=== PATIENT | male | born 1955 | race Caucasian/White ===

== ENCOUNTER 2021-08-01 20:34 | Emergency (ER) | payer BC ==
[2021-08-01 20:51] VITALS: BP 188/93; PULSE 68; RESP 18; TEMP 97.8
[2021-08-01] MEDS ORDERED: ACETAMINOPHEN TAB 500 MG TAB PO STA (22:05)
[2021-08-01] MEDS ORDERED: LIDOCAINE 1% INJ 10MG/ML (20 ML MDV) SQ ONE (22:05)
[2021-08-01] MEDS ORDERED: DIPH,PERTUS(ACELL)TETVAC-LF 0.5 ML VIAL IM ONE (22:05)
[2021-08-01] MEDS ORDERED: BACITRACIN OINT 1 EACH PACKET TOPICAL ONE (22:05)
--- NOTE | 2021-08-01 23:19 | ED ---
Wound/Laceration HPI - General Chief Complaint: Wound/Laceration Stated Complaint: Fall,Head Lac Time Seen by Provider: 08/01/21 21:52 Source: patient, RN notes reviewed Mode of arrival: ambulatory Limitations: no limitations - History of Present Illness Initial Comments: Patient is a 66-year-old male with history of Parkinson's, presenting to emergency Department with an injury to his left forehead. Patient states he was trying to get firewood, he tripped on the ground and fell forward, his forehead struck a tree stump. He denies loss of consciousness, he denies being dizzy or lightheaded. He is not on blood thinners. He has a large laceration to the left side of his forehead. He is not up-to-date with his tetanus vaccine. He denies any neck pain, no chest pain or shortness of breath, no pain in his extremities. He has no further injuries from this fall. He has no further complaints. - Related Data Allergies Allergy/AdvReac Type Severity Reaction Status Date / Time No Known Allergies Allergy Verified 08/01/21 20:50 Review of Systems ROS Statement: Those systems with pertinent positive or pertinent negative responses have been documented in the HPI. ROS Other: All systems not noted in ROS Statement are negative. Past Medical History Additional Past Medical History / Comment(s): Parkinsons History of Any Multi-Drug Resistant Organisms: None Reported Past Surgical History: No Surgical Hx Reported Past Psychological History: No Psychological Hx Reported Smoking Status: Never smoker Past Alcohol Use History: Occasional Past Drug Use History: None Reported General Exam - General Exam Comments Initial Comments: GENERAL: Patient is well-developed and well-nourished. Patient is nontoxic and in no acute distress. HEAD: Atraumatic, normocephalic. Patient has no hematomas. EYES: Pupils equal round and reactive to light, extraocular movements intact, sclera anicteric, conjunctiva are normal. Eyelids were unremarkable. ENT: Moist mucous membranes. NECK: Normal range of motion, supple without lymphadenopathy or JVD. He has no midline tenderness. LUNGS: Unlabored respirations. Breath sounds clear to auscultation bilaterally and equal. No wheezes rales or rhonchi. HEART: Regular rate and rhythm without murmurs, rubs or gallops. ABDOMEN: Soft, nontender, normoactive bowel sounds. No guarding, no rebound. No masses appreciated. MUSCULOSKELETAL: Normal extremities with adequate strength and normal range of motion, no pitting or edema. No clubbing or cyanosis. NEUROLOGICAL: Patient is alert and oriented x 3. Motor and sensory are also intact. Cranial nerves II through XII grossly intact. Symmetrical smile. Normal speech. PSYCH: Normal mood, normal affect. SKIN: Warm, Dry, normal turgor, no rashes. Patient has a 6cm L shaped laceration to left side of the forehead. No active bleeding. Limitations: no limitations Course Vital Signs 08/01/21 20:47 Temperature 97.8 F Pulse Rate 68 Respiratory 18 Rate Blood Pressure 188/93 O2 Sat by Pulse 97 Oximetry Procedures - Laceration Laceration #1 Consent Obtained: verbal consent Indication: laceration Site: face (Left forehead) Size (cm): 6 Description: flap Depth: simple, single layer Anesthetic Used: lidocaine 1% Anesthesia Technique: local infiltration Amount (mls): 9 Pre-repair: irrigated extensively Type of Sutures: nylon Size of Sutures: 5-0 Number of Sutures: 16 Technique: simple, interrupted Patient Tolerated Procedure: well Medical Decision Making - Medical Decision Making Patient is a 66-year-old male with history of Parkinson's presenting after he tripped and fell, his forehead landing on a tree stump which resulted in a 6 cm laceration to the left side of the forehead. We did update his tetanus today. I did recommend a CT of his head however patient refused. He is not on blood thinners. His exam is otherwise unremarkable. Patient's wound was cleaned, closed with 16, 5-0 sutures. He tolerated procedure well. We discussed wound care, he will have sutures removed in 7-10 days. He is agreeable to this plan of care and he is stable for discharge. Disposition Clinical Impression: Fall, Laceration of forehead Disposition: HOME SELF-CARE Condition: Stable Instructions (If sedation given, give patient instructions): Care For Your Stitches (ED) Additional Instructions: Please return to the Emergency Department if symptoms worsen or any other concerns. Keep area clean and dry. Sutures need to be removed in 7-10 days. May apply topical antibiotic twice daily. Is patient prescribed a controlled substance at d/c from ED?: No Referrals: Nonstaff,Physician [Primary Care Provider] - 1-2 days Time of Disposition: 23:19
== END 2021-08-01 23:37 | disposition home or self-care (01) ==
LOC: EC 20:34
DX: S01.81XA Laceration without foreign body of other part of head, initial encounter (principal); W01.198A Fall on same level from slipping, tripping and stumbling with subsequent striking against other object, initial encounter
CPT/HCPCS: 90715; 99282; 90471; 12014; J2001